=== PATIENT | male | born 1985 | race Caucasian/White ===

== ENCOUNTER 2019-01-18 21:57 | Emergency (ER) | payer SELFPAY, OTHER ==
[2019-01-19] MEDS: ACETAMINOPHEN 325 MG TAB PO (02:38)
== END 2019-01-19 04:36 | disposition home or self-care (01) ==
LOC: FTE 21:57
DX: M25.522 Pain in left elbow (principal); M54.2 Cervicalgia; M25.512 Pain in left shoulder; M25.532 Pain in left wrist
CPT/HCPCS: 72040; 72100; 73080-LT; 73110-LT; 99284-25